=== PATIENT | male | born 1955 | race African-American/Black ===

== ENCOUNTER → 2019-05-06 | Outpatient (CLI) | payer MEDICARE ==
[2014-10-25 12:10] VITALS: BP 165/99
[~2019-05-06] MED LIST: CARV25TA2 PO; FURO40TA4 PO; KLOR CON; LISI-334 PO; NAPR500T8 PO; PANT40TA77 PO; TAMS0.4C2 PO; TRAM50TA PO
--- NOTE | 2019-05-06 11:40 | CARD ---
MR#: [id number] Date of Study: 05/06/2019 Ordering Physician: SELVIN GRAY, Referring Physician: SELVIN GRAY, Tech: Delisa Marin [facility] APPROVED REPORT EXAM: Two-dimensional and M-mode echocardiogram with Doppler and color Doppler. Other Information Quality : GoodHR: 82bpm Rhythm : NSR INDICATION Cardiomyopathy 2D DIMENSIONS RVDd2.9 (2.9-3.5cm)Left Atrium(2D)4.2 (1.6-4.0cm) IVSd1.2 (0.7-1.1cm)Aortic Root(2D)3.0 (2.0-3.7cm) LVDd5.9 (3.9-5.9cm)LVOT Diameter2.4 (1.8-2.4cm) PWd0.9 (0.7-1.1cm)LVDs5.4 (2.5-4.0cm) FS (%) 8.9 %SV33.1 ml LVEF(%)20.0 (>50%) Aortic Valve AoV Peak Favio.100.2cm/sAoV VTI17.3cm AO Peak GR.4.0mmHgLVOT Peak Favio.66.7cm/s AO Mean GR.2mmHgAVA (VMAX)3.01cm2 GILES (VTI)3.00cm2 Mitral Valve MV E Mzyffggd34.6cm/sMV E Peak Gr.76mmHg MV DECEL [id number] A Xjsdeisj62.9cm/s E/A Ratio0.6 Pulmonary Valve PV Peak Aiofamcf08.9cm/s Tricuspid Valve TR P. Zlttpbaw078ts/sRAP BHESPTKQ5olYw TR Peak Gr.29akFdZCQV74diLy LEFT VENTRICLE The Left Ventricle is mildly dilated. There is normal left ventricular wall thickness. The left ventr icular systolic function is severely impaired. The Ejection Fraction is 25%. There is global hypokine sis of the left ventricle. Transmitral Doppler flow pattern is Grade I-abnormal relaxation pattern. RIGHT VENTRICLE The right ventricle is normal size. There is normal right ventricular wall thickness. The right ventr icular systolic function is normal. ATRIA The left atrium is mildly dilated. The right atrium size is normal. The interatrial septum is intact with no evidence for an atrial septal defect or patent foramen ovale as noted on 2-D or Doppler imagi ng. AORTIC VALVE The aortic valve is normal in structure and function. The aortic valve is trileaflet. Doppler and Col or Flow revealed no significant aortic regurgitation. There is no significant aortic valvular stenosi s. There is no aortic valvular vegetation. MITRAL VALVE The mitral valve is normal in structure and function. There is no evidence of mitral valve prolapse. There is no mitral valve stenosis. Doppler and Color-flow revealed mild mitral regurgitation. TRICUSPID VALVE The tricuspid valve is normal in structure and function. Doppler and Color Flow revealed trace tricus pid regurgitation. The PA pressure was estimated at 25 mmHg. There is no tricuspid valve prolapse or vegetation. There is no tricuspid valve stenosis. PULMONIC VALVE The pulmonic valve is not well visualized. GREAT VESSELS The aortic root is normal in size. The ascending aorta is normal in size. The IVC is normal in size a nd collapses >50% with inspiration. PERICARDIAL EFFUSION There is no evidence of significant pericardial effusion. Critical Notification Critical Value: No <Conclusion> The left ventricular systolic function is severely impaired. The Ejection Fraction is 25%. Transmitral Doppler flow pattern is Grade I-abnormal relaxation pattern. Mild mitral regurgitation. Trace tricuspid regurgitation. The PA pressure was estimated at 25 mmHg. There is no evidence of significant pericardial effusion. Signed by : Napoleon Barrios, Electronically Approved : 05/06/2019 11:39:57
== END | disposition home or self-care (01) ==
LOC: ECHO 10:55
PROVIDERS: ATTEND Internal Medicine Cardiovascular Disease
DX: I34.0 Nonrheumatic mitral (valve) insufficiency (principal); I42.9 Cardiomyopathy, unspecified
CPT/HCPCS: 93306

== ENCOUNTER → 2019-08-08 | Outpatient (CLI) | payer MEDICARE ==
[2014-10-25 12:10] VITALS: BP 165/99
--- NOTE | 2019-08-08 12:53 | RAD ---
EXAM: Chest, 2 views. HISTORY: Bronchitis. Cardiomyopathy. COMPARISON: 05/22/2016 FINDINGS: 2 views of the chest are obtained. There is increased left lower lobe interstitial opacity likely due to bronchiectasis or chronic interstitial change. There is no consolidation, pleural effusion or pneumothorax. There are calcified granulomas within the left hilum. The heart is normal in size. IMPRESSION: Suspected left lower lobe bronchiectasis or chronic interstitial change. There is no consolidated infiltrate. Electronically signed by: Farrah Black MD (08/08/2019 12:49 PM) [place] [id number]
== END | disposition home or self-care (01) ==
LOC: RAD 12:15
PROVIDERS: ATTEND Family Medicine
DX: J98.4 Other disorders of lung (principal); J40 Bronchitis, not specified as acute or chronic; I42.9 Cardiomyopathy, unspecified
CPT/HCPCS: 71046

== ENCOUNTER → 2019-09-19 | Outpatient (CLI) | payer MEDICARE ==
[2014-10-25 12:10] VITALS: BP 165/99
--- NOTE | 2019-09-19 16:49 | RAD ---
Examination: CT CHEST HIGH RESOLUTION WO History: Interstitial lung disease Comparison/Correlation: 08/08/2019 chest x-ray exam Findings: Axial images of chest were obtained without contrast. Exam is obtained with the patient prone and supine. High-resolution 0.1 cm section images were obtained through the chest. Calcified left hilar lymph nodes are present. Smaller right hilar calcified lymph nodes are present. No enlarged thoracic lymph nodes. No pleural or pericardial effusion. At the thoracic inlet, a right paratracheal air cyst is present. Bilateral lower lobe bronchiectasis is present. No pneumothorax. Minimal linear atelectasis or scarring at the left S1 levels present. No suspicious interstitial infiltrates. No interstitial reticular infiltrates. Punctate nodularity is noted in subpleural location involving the lower lung baron. No suspicious pulmonary nodule or mass lesions. Impression: Bilateral lower lobe bronchiectasis greater on the left. Nonspecific punctate nodular densities involving the lower lung baron near the pleural. No interstitial infiltrates. PQRS Compliance Statement: One or more of the following individualized dose reduction techniques were utilized for this examination: 1. Automated exposure control 2. Adjustment of the mA and/or kV according to patient size 3. Use of iterative reconstruction technique Electronically signed by: Stefano Mendoza MD (09/19/2019 4:46 PM) [facility]
== END | disposition home or self-care (01) ==
LOC: CT 09:40
PROVIDERS: ATTEND Internal Medicine Critical Care Medicine
DX: J47.9 Bronchiectasis, uncomplicated (principal); R91.8 Other nonspecific abnormal finding of lung field; J39.8 Other specified diseases of upper respiratory tract; J84.9 Interstitial pulmonary disease, unspecified
CPT/HCPCS: 71250

== ENCOUNTER → 2019-12-06 | Outpatient (CLI) | payer MEDICARE, OTHER ==
[2014-10-25 12:10] VITALS: BP 165/99
--- NOTE | 2019-12-08 12:46 | RAD ---
MR#: [id number] Date of Study: 12/06/2019 Ordering Physician: SELVIN GRAY, Referring Physician: BHAVNA CERRATO Tech: APPROVED REPORT Stress Nurse/Tech: RT Sarkis (R) (N) Test Indications: Evaluation of EF Cardiac History: Non-ischemic CMP Medications: See chart Rest: Stress: Viability: Radiopharm.TC99M RBC'S Dose24.0mCi Img Date 12/06/2019 LV Perfusion This is a resting MUGA scan: Normal RV function is noted The left ventricular systolic function is severely decreased. Ejection fraction of 30%. Conclusion 1. 1. Left ventricular ejection fraction of 30%. Signed by : Selvin Gray, Electronically Approved : 12/08/2019 12:46:06
== END | disposition home or self-care (01) ==
LOC: NM 13:24
PROVIDERS: ATTEND Internal Medicine Cardiovascular Disease
DX: I42.9 Cardiomyopathy, unspecified (principal)
CPT/HCPCS: 78472; A9560

== ENCOUNTER → 2020-09-21 | Outpatient (CLI) | payer MEDICARE, OTHER ==
[2014-10-25 12:10] VITALS: BP 165/99
[~2020-09-21] MED LIST changes: -LISI-334 PO; +LISI20TA18 PO
--- NOTE | 2020-09-21 15:29 | CARD ---
MR#: [id number] Date of Study: 09/21/2020 Ordering Physician: SELVIN GRAY, Referring Physician: SELVIN GRAY, Tech: Adri Denise [facility] APPROVED REPORT EXAM: Two-dimensional and M-mode echocardiogram with Doppler and color Doppler. Other Information Quality : GoodHR: 90bpm Rhythm : NSR INDICATION Cardiomyopathy 2D DIMENSIONS RVDd3.2 (2.9-3.5cm)Left Atrium(2D)4.3 (1.6-4.0cm) IVSd0.8 (0.7-1.1cm)Aortic Root(2D)2.9 (2.0-3.7cm) LVDd6.3 (3.9-5.9cm)LVOT Diameter2.4 (1.8-2.4cm) PWd1.1 (0.7-1.1cm)LVDs5.3 (2.5-4.0cm) FS (%) 15.2 %SV62.8 ml Aortic Valve AoV Peak Favio.118.9cm/sAoV VTI18.9cm AO Peak GR.5.7mmHgLVOT Peak Favio.69.9cm/s AO Mean GR.3mmHgAVA (VMAX)2.71cm2 Pulmonary Valve PV Peak Rxdtqgku449.7cm/s Tricuspid Valve TR P. Dzzybxae156hq/sTR Peak Gr.14mmHg LEFT VENTRICLE The Left Ventricle is mildly dilated. There is normal left ventricular wall thickness. The systolic f unction is moderately impaired. Estimated ejection fraction is 35%. There is global hypokinesis of t he left ventricle. Transmitral Doppler flow pattern is Grade II-pseudonormal filling dynamics. RIGHT VENTRICLE The right ventricle is normal size. The right ventricle is mildly hypertrophied. Systolic function is borderline reduced. ATRIA The left atrium size is normal. The right atrium size is normal. The interatrial septum is intact wit h no evidence for an atrial septal defect or patent foramen ovale as noted on 2-D or Doppler imaging. AORTIC VALVE The aortic valve is normal in structure and function. Doppler and Color Flow revealed no significant aortic regurgitation. There is no significant aortic valvular stenosis. MITRAL VALVE The mitral valve is normal in structure and function. There is no evidence of mitral valve prolapse. There is no mitral valve stenosis. Doppler and Color-flow revealed mild mitral regurgitation. TRICUSPID VALVE The tricuspid valve is normal in structure and function. Doppler and Color Flow revealed trace tricus pid regurgitation. Estimated PAP 18 mmHg. There is no tricuspid valve stenosis. PULMONIC VALVE The pulmonary valve is normal in structure and function. GREAT VESSELS The aortic root is normal in size. The ascending aorta is normal in size. The IVC is normal in size a nd collapses >50% with inspiration. PERICARDIAL EFFUSION There is no evidence of significant pericardial effusion. Critical Notification Critical Value: No <Conclusion> The Left Ventricle is mildly dilated. The systolic function is moderately impaired. Estimated ejection fraction is 35%. There is global hypokinesis of the left ventricle. Doppler and Color Flow revealed no significant aortic regurgitation. There is no significant aortic valvular stenosis. Doppler and Color-flow revealed mild mitral regurgitation. Doppler and Color Flow revealed trace tricuspid regurgitation. Estimated PAP 18 mmHg. Signed by : Conor Rosales MD Electronically Approved : 09/21/2020 15:28:45
== END ==
LOC: ECHO 10:47
PROVIDERS: ATTEND Internal Medicine Cardiovascular Disease
DX: I34.0 Nonrheumatic mitral (valve) insufficiency (principal); I11.9 Hypertensive heart disease without heart failure
CPT/HCPCS: 93306